=== PATIENT | male | born 1970 | race Caucasian/White ===

== ENCOUNTER 2017-09-08 15:21 | Inpatient (IN) | payer MEDICAID ==
[~2017-09-08] VITALS: Ht 180.3 cm; Wt 93.2 kg
--- NOTE | 2017-09-08 15:28 | NUR ---
PT BIBA C/O ANXIETY AND CHEST PAIN X A COUPLE OF HOURS. PER MEDIC PT IS HAVING A LOT OF ANXIETY. PLACED PT ON CM, VSS. PT A/O X 4, PT'S RESP E/U, PT ABLE TO SPEAK FULL SENTENCES. AWAITING DR REDMAN.
--- NOTE | 2017-09-08 16:04 | NUR ---
ED PHYSICIAN AT BEDSIDE FOR PATIENT EVALUATION. MEDICAL SCREENING EXAMINATION COMPLETED BY ED PHYSICIAN.
--- NOTE | 2017-09-08 16:34 | NUR ---
MEDICATED PT ORDERED, SEE MAR. WILL MONITOR FOR ADVERSE REACTIONS
[2017-09-08 16:41] LABS: BASOPHIL % 0.7 % (0-2); PLATELET COUNT 272 x10^3mcL (130-400)
[2017-09-08 16:48] LABS: CALCIUM 9.1 mg/dL (8.5-10.1); CHLORIDE SERUM 102 mmol/L (98-107); CREATININE SERUM 0.9 mg/dL (0.7-1.3); GFR1 > 60 mL/min; GLUCOSE SERUM 100 mg/dL (74-106); POTASSIUM SERUM 3.7 mmol/L (3.5-5.1); SODIUM SERUM 138 mmol/L (136-145)
[2017-09-08 16:53] LABS: ALBUMIN 3.8 g/dL (3.4-5.0); ALKALINE PHOSPHATASE 73 U/L (46-116); ALT/SGPT 30 U/L (16-63); AST/SGOT 21 U/L (15-37); BILIRUBIN TOTAL 0.8 mg/dL (0.20-1.00); TOTAL PROTEIN, SERUM 8.1 g/dL (6.4-8.2)
--- NOTE | 2017-09-08 18:19 | NUR ---
PT RESTING COMFORTABLY ON GURMELVIN, VSS. WILL CONTINUE TO MONITOR PT.
--- NOTE | 2017-09-08 19:06 | NUR ---
CHANGE OF SHIFT REPORT GIVEN BY MARCO ANTONIO MONTESINOS TO CONTINUE CARE.
--- NOTE | 2017-09-08 19:21 | NUR ---
PT NOTED TO BE ON GURNEY, SUPINE POSITION WITH SYMMETRIC CHEST EXPANSION. PT REPORTS HE WAS WALKING DOWN THE STREET WHEN ANXIETY BEGAN. PT REPORTS SUICIDAL THOUGHTS. PT STATES HEARING VOICES AND HAVING A PLAN. PT STATES ATTEMPTING TO JUMP OF A BRIDGE OR WALKING IN FRONT OF A MOVING CAR IN ATTEMPTS TO HURT HIMSELF. PT ASKING IF HE WILL REMAIN IN ER FOR HOLD, "USUALLY WHEN I SAY I HAVE INTENTIONS TO HURT MYSELF THEY HAVE SOMEONE WATCHING ME...WILL THE DOCTOR GIVE ME MORE MEDICINE?". DR SHOEMAKER MADE AWARE OF PT INTENTIONS TO HURT HIMSELF. PT IN WITH CURTAIN OPEN FOR CLOSER OBSERVATION.
--- NOTE | 2017-09-08 19:30 | NUR ---
DR SHOEMAKER AT BEDSIDE DISCUSSING PLAN OF CARE WITH PT.
--- NOTE | 2017-09-08 19:50 | NUR ---
[facility] AT BEDSIDE.
--- NOTE | 2017-09-08 20:21 | NUR ---
PT NOTED TO BE ON GURENY WATCHING TV. CHEST RISE NOTED UPON INHALATION. NO SX OF ANXIETY NOTED AT THIS TIME. PT IN WITH CURTAIN OPEN FOR CLOSER OBSERVATION.
[2017-09-08 21:03] LABS: AMPHETAMINE QUAL UR NONE DETECTED (NEG <=1000)
--- NOTE | 2017-09-08 21:19 | NUR ---
PT RESTING IN BED WITH NO SIGNS OF DISTRESS AT THIS TIME.
--- NOTE | 2017-09-08 22:15 | NUR ---
PT RESTING IN BED WITH EYES CLOSED WITH NO SIGNS OF DISTRESS NOTED AT THIS TIME. PT CLOSE TO NURSING STATION FOR SAFETY.
--- NOTE | 2017-09-08 23:25 | NUR ---
PT NOTED RESTING LYING IN BED CLOSE TO NURSING STATION. PT'S EYES ARE CLOSED AT THIS TIME WITH NO SIGNS OF DISTRESS NOTED.
--- NOTE | 2017-09-09 00:34 | NUR ---
PT REPOSITIONED FOR COMFORT AND GIVEN WARM BLANKET. NO COMPLAINTS OR SIGNS OF DISTRESS AT THIS TIME.
--- NOTE | 2017-09-09 01:53 | NUR ---
PT MEDICATED PER ORDER. SEE EMAR.
--- NOTE | 2017-09-09 03:22 | NUR ---
PT IS SLEEPING, RESP EVEN AND UNLABORED, REMAINS ON TOWER LOADER OPERATOR. PT IN VIEW FROM NURSES STATION, WILL CONTINUE TO MONITOR.
--- NOTE | 2017-09-09 05:09 | NUR ---
PT REMAINS ASLEEP, RESP EVEN AND UNLABORED, POSITIONED TO COMFORT, ON CARDAIC MONITOR AND IN VIEW FROM NURSES' STATION.
--- NOTE | 2017-09-09 05:54 | NUR ---
PT MEDICATED WITH ATIVAN PER ORDER. SEE EMAR.
--- NOTE | 2017-09-09 06:47 | NUR ---
SPOKE WITH PT REGARDING HOME MEDS AND COMPLIANCE TO HOME MEDICATIONS. PT STATED "I DON'T KNOW", WHEN ASKED IF HE TAKES METFORMIN EACH DAY AND WHAT OTHER MEDICATIONS HE TAKES IN THE MORNINGS ALONG WITH METFORMIN. ASKED PT IF HE TAKES HIS MEDICATIONS ON A DAILY BASIS AND PT REPLIED "NO, I DON'T". WHEN ASKED WHY HE IS NON-COMPLIANT WITH MEDICATION REGIMEN, PT REPLIED "I'M HOMELESS". I GAVE UNDERSTANDING.
--- NOTE | 2017-09-09 07:16 | NUR ---
REPORT GIVEN TO MARCO ANTONIO MARINO TO ASSUME CARE OF PT.
--- NOTE | 2017-09-09 07:28 | NUR ---
RECEIVED REPORT FROM MARCO ANTONIO QUINN TO ASSUME CARE OF PT, PT RESTING IN BED IN A POSITION OF COMFORT, REPORTS FEELING BETTER AFTER RECEIVING ATIVAN PO MEDICATION, PT DENIES ANY PAIN, STS HE STILL FEELS LIKE HURTING SELF AND REPORTS HE HAS BEEN FEELING THAT WAY "FOR A FEW DAYS" DENIES PLAN AT THIS TIME AND VERBALIZES HE WILL NOT TRY TO HARM SELF WHILE HERE, PT IN FULL VIEW OF NURSING STATION, BREAKFAST TRAY PROVIDED AND PT EATING AT THIS TIME, PT RESP EVEN AND UNLBAORED, WILL CONTINUE TO MONITOR
--- NOTE | 2017-09-09 09:15 | NUR ---
PT AMBULATORY WITH STEADY GAIT TO RESTROOM AND BACK TO TX AREA WITH NO INCIDENCE
--- NOTE | 2017-09-09 09:17 | NUR ---
PT REPORTS FEELING VERY ANXIOUS AGAIN, DR. GRECO MADE AWARE, PT MEDICATED PER MD ORDER, PLEASE SEE EMAR, PT TOLERATED WELL, PT IN FULL VIEW OF NURSING STATION, PT RESP EVEN AND UNLABORED, IN NO ACUTE DISTRESS, WILL CONTINUE TO MONITOR
--- NOTE | 2017-09-09 10:10 | NUR ---
PT RESTING IN BED IN A POSITION OF COMFORT, RESP EVEN AND UNLABORED, CUP OF SPRITE PROVIDED PER PT REQUEST, PT IN FULL VIEW OF NURSING STATION, PT IN NO ACUTE DISTRESS, WILL CONTINUE TO MONITOR
[2017-09-09] MEDS ORDERED: HYDROXYZINE50 M1 PO (10:20)
[2017-09-09] MEDS ORDERED: TRAZODONE50 M1 PO (10:20)
[2017-09-09] MEDS ORDERED: DOK COLACE100 MG PO (10:21)
[2017-09-09] MEDS ORDERED: LEXAPRO10 MG PO (10:21)
[2017-09-09] MEDS ORDERED: METFORMIN HCL1000 MG PO (10:22)
[2017-09-09] MEDS ORDERED: PROPRANOLOL HCL20 MG PO (10:22)
--- NOTE | 2017-09-09 10:23 | NUR ---
MED REC COMPLETED
--- NOTE | 2017-09-09 10:50 | NUR ---
RESIDENT AT BEDSIDE FOR EVAL
--- NOTE | 2017-09-09 11:37 | NUR ---
PT ASKING FOR SOMETHING "FOR THE VOICES." PONCE ORDERED BUT NOT SLATED TO START UNTIL TOMORROW. CALLED PHARMACIST BUT HE STATES WE COULD NEED A ONE TIME ORDER TO GIVE TODAY. CALLED RESIDENT SUGAR CANE PLANTER MACHINE OPERATOR, SPOKE W/ DR. MARTINEZ. HE WILL DISCUSS W/ ATTENDING & PUT IN A MED ORDER, POSSIBLY ANKIT.
--- NOTE | 2017-09-09 12:25 | NUR ---
PT MEDICATED PER MD ORDER, PLEASE SEE EMAR, PT TOLERATED WELL, PT EATING LUNCH AT THIS TIME, IN NO ACUTE DISTRESS AND IN FULL VIEW OF NURSING STATION, WILL CONTINUE TO MONITOR
--- NOTE | 2017-09-09 13:04 | NUR ---
PT ASKED IF HE COULD PACE. UP PACING BACK & FORTH AGAIN.
--- NOTE | 2017-09-09 13:10 | NUR ---
REPORT GIVEN TO MARCO ANTONIO JACINTO TO ASSUME CARE OF PT POST TRANSPORT TO ICU
--- NOTE | 2017-09-09 13:15 | NUR ---
RECEIVED REPORT FROM ED RN, WILL AWAIT PT'S ARRIVAL.
[2017-09-09 13:45] VITALS: BP 142/106
--- NOTE | 2017-09-09 13:45 | NUR ---
PT RECEIVED FROM ED, A/OX4, BREATHING EVEN AND UNLABORED, DENIES SOB, LUNGS CTA ON RA, 94% O2 SATS, PULSES PRESENT, NO EDEMA NOTED, CAP REFILL <3, HR 105 ST, DENIES CHEST PAIN, S1 AND S2 PRESENT, SKIN WARM/DRY/INTACT, PT DENIES N/V, ABD SOFT/ROUND AND NONTENDER, BOWEL SOUNDS ACTIVE X4, LBM REPORTED 09/07/17, REPORTS LBM LOOSE, IV TO LAC INFUSING NS AT 100ML/HR, ABLE TO VOID USING URINAL, PALE YELLOW URINE NOTED, DENIES ALL PAIN AT THIS TIME, PT STATES HE IS HOMELESS AND "I HAVE NOBODY", C/O ANXIETY, PT STATES HE HAS SUICIDAL IDEATION, PT WITHIN VIEW OF NURSES STATION, CALL LIGHT WITHIN REACH, WILL CONTINUE TO MONITOR.
[2017-09-09 14:28] LABS: BASOPHIL % 0.6 % (0-2); PLATELET COUNT 236 x10^3mcL (130-400)
[2017-09-09 14:35] LABS: AMYLASE 63 U/L (25-115); CALCIUM 9.5 mg/dL (8.5-10.1); CARBON DIOXIDE 28.7 mmol/L (21-32); CHLORIDE SERUM 103 mmol/L (98-107); CHOLESTEROL 189 mg/dL (<200); CHOLESTEROL/HDL RATIO 3.9; GFR1 > 60 mL/min; GLUCOSE SERUM 109 mg/dL (74-106); HDL CHOLESTEROL 48 mg/dL (40-60); LIPASE 122 IU/L (73-393); MAGNESIUM 2.2 mg/dL (1.8-2.4); PHOSPHOROUS 3.7 mg/dL (2.5-4.9); SODIUM SERUM 140 mmol/L (136-145); TRIGLYCERIDES 144 mg/dL (<150)
--- NOTE | 2017-09-09 14:38 | NUR ---
DR ROGERS AT BEDSIDE SPEAKING WITH PT.
[2017-09-09 15:12] LABS: FREE T4 1.02 ng/dL (0.76-1.46); FREE THYROXINE INDEX 3.2 ug/dL (1.4-4.5); T4(THYROXINE) 8.7 ug/dL (4.7-13.3)
[2017-09-09 15:39] LABS: T3 TOTAL 0.93 ng/mL
[2017-09-09 16:05] VITALS: BP 112/73
--- NOTE | 2017-09-09 16:05 | NUR ---
PT A/OX4,DENIES H/A, LUNGS CTA ON RA, BREATHING EVEN AND UNLABORED, DENIES SOB, PULSES PRESENT, NO EDEMA NOTED, CAP REFILL <3 SEC, HR 80 NSR, DENIES CHEST PAIN, SKIN WAR/DRY/INTACT, BOWEL SOUNDS ACTIVE X4, DENIES N/V, ABD NONTENDER, ABD SOFT/ROUND, IV TO LAC INFUSING NS AT 100ML/HR, IV WNL, PT ABLE TO VOID USING URINAL, PALE YELLOW URINE NOTED, DENIES ALL PAIN, PT VOICES SUICIDAL IDEATION, PT WITHIN VIEW OF NURSES STATION, CALL LIGHT WITHIN REACH, WILL CONTINUE TO MONITOR.
--- NOTE | 2017-09-09 17:31 | NUR ---
DR GRADY AT BEDSIDE. UPDATES PROVIDED. INFORMED OF DR ROGERS RECOMMENDATIONS OF TXFER TO PSYCHIATRIC FACILITY IF MEDICALLY CLEARED. DR GRADY TO PUT IN REQUEST FOR [facility] TO FIND SUITABLE FACILITY.
[2017-09-09 19:00] VITALS: BP 139/90
--- NOTE | 2017-09-09 19:10 | NUR ---
PT ENDORSED TO JAGUAR BERNARD AND MARIEL BERNARD, ALL QUESTIONS ANSWERED.
--- NOTE | 2017-09-09 19:49 | NUR ---
PT CURRENTLY RESTING IN BED, NO ACUTE DISTRESS. A/O X4. TELE SHOWING SINUS RHYTHM, DENIES CHEST PAIN. PULSES PALPABLE IN ALL EXTREMITIES, NO EDEMA NOTED. LUNG SOUNDS CTA BILATERALLY. BOWEL SOUNDS ACTIVE, LAST BM 09/07/17. VOIDING WELL. AMBULATORY. SKIN INTACT. IV PATENT AND INTACT. POSITIVE SUICIDAL IDEATION, PT STATES HE DOES NOT INTEND TO HARM HIMSELF DESPITE THOUGHTS. PT STATES AUDITORY HALLUCINATIONS HAVE STOPPED. BED IN LOWEST POSITION, SIDE RAILS UP X2, CALL LIGHT WITHIN REACH. WILL CONTINUE TO MONITOR.
--- NOTE | 2017-09-09 23:17 | NUR ---
PT CURRENTLY RESTING IN BED, NO ACUTE DISTRESS. POSITIVE SUICIDAL IDEATION, PT STATES HE DOES NOT INTEND TO HARM SELF AT THIS TIME. WILL CONTINUE TO MONITOR.
[2017-09-09 23:37] VITALS: BP 111/70
--- NOTE | 2017-09-10 03:17 | NUR ---
PT CURRENTLY RESTING IN BED, NO ACUTE DISTRESS. NO SIGNIFICANT CHANGES FROM PREVIOUS ASSESSMENT. POSITIVE SUICIDAL IDEATION, DENIES INTENT TO HARM SELF. WILL CONTINUE TO MONITOR.
[2017-09-10 03:47] VITALS: BP 116/81
[2017-09-10 04:51] LABS: BASOPHIL % 0.3 % (0-2); PLATELET COUNT 211 x10^3mcL (130-400); RED CELL DISTRIBUTION WIDTH 13.9 % (11.5-14.5)
[2017-09-10 05:12] LABS: CALCIUM 8.3 mg/dL (8.5-10.1); CARBON DIOXIDE 26.2 mmol/L (21-32); CHLORIDE SERUM 105 mmol/L (98-107); GFR1 > 60 mL/min; GLUCOSE SERUM 98 mg/dL (74-106); POTASSIUM SERUM 3.7 mmol/L (3.5-5.1); SODIUM SERUM 139 mmol/L (136-145)
--- NOTE | 2017-09-10 07:07 | NUR ---
CARE ENDORSED TO DEJON BERNARD AND FELIX BERNARD.
[2017-09-10 08:00] VITALS: BP 139/92
[2017-09-10 08:10] VITALS: Ht 180.3 cm; Wt 93.2 kg
--- NOTE | 2017-09-10 08:35 | NUR ---
DR. THOMASON, RESIDENTS, SWEEPER BRUSH MAKER MACHINE AND PRIMARY RN AT BEDSIDE FOR MORNING ROUNDS. PLAN OF CARE DISCUSSED. PT A/O X 4 AND IN AGREEMENT TO PLAN. WILL CONT TO MONITOR.
--- NOTE | 2017-09-10 10:53 | NUR ---
ECHOCARDIOGRAM COMPLETED.
[2017-09-10 12:00] VITALS: BP 99/63
--- NOTE | 2017-09-10 14:21 | NUR ---
COMPLETE LINEN AND GOWN CHANGED. PATIENT CURRENTLY WALKING AROUND THE UNIT, COOPERATIVE WITH STEADY GAIT. WILL CONTINUE TO MONITOR.
[2017-09-10 16:55] VITALS: BP 126/91
--- NOTE | 2017-09-10 18:44 | NUR ---
PT REMAINED STABLE THROUGHOUT DAY. AAOX4. DENIES HALLUCINATIONS AND SI. ON RA, DENIES SOB THROUGHOUT DAY AND ABLE TO HOLD CONVERSATIONS. VITAL SIGNS REMAINED WNL. PT ABLE TO AMBULATE AROUND UNIT. USES COMMODE TO DEFECATE AND VOIDS IN URINAL. IV FLUIDS DISCONTINUED PT IS EATING AND HYDRATING WELL. WILL CONTINUE TO MONITOR AND ENDORSE CARE TO ONCOMING RN.
--- NOTE | 2017-09-10 19:18 | NUR ---
RECEIVED PT FROM PREVIOUS SHIFT. ALL QUESTIONS AND CONCERNS ADDRESSED AT THIS TIME. PT IN NO ACUTE DISTRESS. DENIES CHEST PAIN/PRESSURE. DENIES SOB ON RA. IV TO LAC PATENT, HEPLOCKED. PT AMBULATING IN STATION PER REQUEST. STEADY GAIT. DENIES PAIN. WILL CONTINUE TO MONITOR.
[2017-09-10 19:51] VITALS: BP 129/82
--- NOTE | 2017-09-10 20:17 | NUR ---
PT C/O FEELING ANXIOUS. ATIVAN PO PROVIDED PER EMAR WITH MEDS. TOLERATED WELL. WILL CONTINUE TO MONITOR.
--- NOTE | 2017-09-10 23:19 | NUR ---
PT RESTING AT THIS TIME IN NO ACUTE DISTRESS. RR EVEN/UNLABORED. EASILY AWAKENED. REFUSED VS AT THIS TIME. DENIES PAIN. DENIES SOB ON RA. IV PATENT. CALL LIGHT WITHIN REACH, BED IN LOW POSITION. WILL CONTINUE TO MONTIOR.
[2017-09-11 03:39] VITALS: BP 119/75
--- NOTE | 2017-09-11 06:37 | NUR ---
NO ACUTE CHAMGES THROUGHOUT SHIFT. PT A/OX4. DENIES PAIN. DENIES SOB ON RA. IV PATENT. WILL ENDORSE CARE TO ONCOMING SHIFT
[2017-09-11 08:00] VITALS: BP 123/86
--- NOTE | 2017-09-11 08:00 | NUR ---
RECEIVED PT IN BED. ASSESSED AND DOCUMENTED. DENIES PAIN THIS TIME. STATED HE HAS MILD ANXIETY AND MEDICATED PT WITH ATIVAN PO ORDERED. SAFTEY PRECAUTIONS ARE IN PLACE.
--- NOTE | 2017-09-11 09:00 | NUR ---
PT IS MORE CALM NOW AFTER ATIVAN PO. AMBULATING IN THE HALLWAY WITH STAEDY GAIT.
--- NOTE | 2017-09-11 09:12 | NUR ---
PATIENT ROUNDS WITH DR. KIM AND RESIDENTS. PRIMARY NURSE AND CHARGE NURSE AT BEDSIDE. UPDATES PROVIDED AND POC DISCUSSED. WILL CONTINUE TO MONITOR.
[2017-09-11 12:00] VITALS: BP 119/90
--- NOTE | 2017-09-11 14:30 | NUR ---
PT SAID HE CANNOT STOP MOVING HIS LEG AND SHOWING HE MOVING HIS LEG. NURSE ASKED PT TO STOP MOVING LEG THEN HE DID FOR FEW MINUTE AGAIN HE STARTED TO MOVE FOR FEW MIN AND THEN STOPPED. PT ASKING FOR RESTLESS LEG SYNDROM MEDICINE, INFORMED ABOUT EVERYTHING. ALSO KNOWS ABOUT PT ASKING FOR MUSCLE RELAXANT. VITAL SIGNS ARE STABLE.
[2017-09-11 16:00] VITALS: BP 113/77
--- NOTE | 2017-09-11 16:00 | NUR ---
PT RESTING IN BED. NO DISTRESS NOTED. ASSESSED AND DOCUMENTED.
--- NOTE | 2017-09-11 19:15 | NUR ---
PT RESTING IN BED COMFORTABLY. DENIES PAIN THIS TIME. NO ANXIETY THIS TIME. PT IS AMBULATING IN THE HALLWAY. GAVE REPORT TO NEXT SHIFT NURSE.
[2017-09-11 20:00] VITALS: BP 125/80
--- NOTE | 2017-09-11 20:00 | NUR ---
RECEIVED PT IN BED, AWAKE, ALERT AND ORIENTED, ABLE TO VERBALIZE NEEDS. BUT APPEARS ANXIOUS. DENIES HEADACHE/DIZZINESS. RESP. EVEN AND UNLABORED. ON ROOM AIR, LUNGS SOUNDS CLEAR BILAT. AFEBRILE AND VITAL SIGNS STABLE. SR ON THE MONITOR, DENIES CP OR PRESSURE. HL TO LAC, INTACT AND PATENT. AMBULATORY. VOIDING FREELY.REMAINS ON 5150 HOLD FOR SUICIDAL IDEATION, BUT PT DENIES AT THIS TIME. CALL LIGHT WITHIN REACH. WILL CONTINUE TO MONITOR.
--- NOTE | 2017-09-11 22:07 | NUR ---
PACING, APPEARS RESTLESS, REQUESTING ANXIETY MED, MEDICATED WITH ATIVAN PO ORDERED. WILL CONTINUE TO MONITOR.
--- NOTE | 2017-09-11 23:08 | NUR ---
EYES CLOSED, APPEARS ASLEEP, EASILY AROUSABLE. NO DISTRESS NOTED. WILL CONTINUE TO MONITOR.
--- NOTE | 2017-09-12 00:20 | NUR ---
RESP. EVEN AND UNLABORED. NO DISTRESS NOTED. EYES CLOSED, APPEARS ASLEEP, EASILY AWAKENED, NO DISTRESS NOTED. WILL CONTINUE TO MONITOR.
[2017-09-12 02:00] VITALS: BP 95/63
--- NOTE | 2017-09-12 02:10 | NUR ---
AWAKE, REQUESTING ANXIETY MED. MEDICATED WITH ATIVAN PO ORDERED. WILL CONTINUE TO MONITOR.
[2017-09-12 05:49] VITALS: BP 93/64
--- NOTE | 2017-09-12 06:40 | NUR ---
AFEBRILE AND VITAL SIGNS STABLE. RESP. EVEN AND UNLABORED. NO DISTRESS NOTED. NO COMPLAINTS NOTED AT THIS TIME. KEPT COMFORTABLE. DENIES ANY SUICIDAL IDEATION AT THIS TIME.DENIES PAIN OR ANY DISCOMFORT. WILL ENDORSE TO INCOMING NURSE.
--- NOTE | 2017-09-12 07:07 | NUR ---
REPORT RECEIVED FROM SEBAS BERNARD. ALL QUESTIONS AND CONCERNS ADDRESSED. PT IS LYING IN BED IN POSITION OF COMFORT. ALERT AND ORIENTED. RESPIRATIONS ARE EVEN AND UNLABORED. AWAITING BREAKFAST. ASSESSMENT TO FOLLOW. BED LOCKED AND IN LOWEST POSITION. SIDE RAILS X2 UP. CALL LIGHT WITHIN REACH. WILL CONTINUE TO MONITOR.
[2017-09-12 08:35] VITALS: BP 120/86
[2017-09-12 12:28] VITALS: BP 109/78
--- NOTE | 2017-09-12 13:30 | NUR ---
PT AMBULATING AROUND UNIT WITH BALANCED/STEADY GAIT. WILL CONTINUE TO MONITOR.
--- NOTE | 2017-09-12 14:40 | NUR ---
PT AMBULATING AROUND UNIT WITH BALANCED STEADY GAIT. WILL CONTINUE TO MONITOR.
--- NOTE | 2017-09-12 14:55 | NUR ---
DR MILLS AT BEDSIDE WITH PT. WILL CONTINUE TO MONITOR.
[2017-09-12 15:44] VITALS: BP 109/78
--- NOTE | 2017-09-12 16:00 | NUR ---
IV ACCESS AT TO LAC REMOVED, ANGIOCATH INTACT. BLEEDING CONTROLLED AND DRESSING APPLIED. PT INFORMATION REVIEWED AND PROVIDED TO PATIENT. LIST OF LOCAL MENTAL HEALTH SERVICE FACILITIES PROVIDED TO PATIENT. PT VERBALIZED UNDERSTANDING. PT WALKED TO ER LOBBY BY AGNES BERNARD WITHOUT INCIDENCE. PT AWAITING TAXI TO ARRIVE, TAXI VOUCHER PROVIDED TO PATIENT.
== END 2017-09-12 16:05 | disposition home or self-care (01) | DRG 750 ==
LOC: ED 15:21 → IC 09-09 10:23 → DU 09-09 10:23 → EDBEDREQ 09-09 12:12 → IC 09-09 12:30
PROVIDERS: Emergency Medicine; ADMIT Family Medicine
DX: F25.0 Schizoaffective disorder, bipolar type (principal); D68.69 Other thrombophilia; R45.851 Suicidal ideations; M94.0 Chondrocostal junction syndrome [Tietze]; E11.9 Type 2 diabetes mellitus without complications; E78.5 Hyperlipidemia, unspecified; G47.00 Insomnia, unspecified; R29.898 Other symptoms and signs involving the musculoskeletal system; Z59.0 Homelessness; Z68.28 Body mass index [BMI] 28.0-28.9, adult; Z79.84 Long term (current) use of oral hypoglycemic drugs
CPT/HCPCS: 82962; 83880; 84439; G0480; J3486; J3490; J7030; J7050; Q0092

== ENCOUNTER 2017-09-13 00:37 | Inpatient (IN) | payer MEDICAID ==
[~2017-09-13] VITALS: Ht 180.3 cm; Wt 97.0 kg
[~2017-09-13 00:37] MED LIST: DOK COLACE100 MG PO; HYDROXYZINE50 M1 PO; LEXAPRO10 MG PO; METFORMIN HCL1000 MG PO; PROPRANOLOL HCL20 MG PO; TRAZODONE50 M1 PO
[2017-09-13 03:54] LABS: BASOPHIL % 1.9 % (0-2); PLATELET COUNT 226 x10^3mcL (130-400); RED CELL DISTRIBUTION WIDTH 13.3 % (11.5-14.5)
[2017-09-13 04:59] LABS: CARBON DIOXIDE 25.6 mmol/L (21-32); CHLORIDE SERUM 104 mmol/L (98-107); GFR1 > 60 mL/min; GLUCOSE SERUM 93 mg/dL (74-106); SODIUM SERUM 139 mmol/L (136-145)
[2017-09-13 05:04] LABS: ALBUMIN 3.7 g/dL (3.4-5.0); ALKALINE PHOSPHATASE 73 U/L (46-116); ALT/SGPT 31 U/L (16-63); AST/SGOT 20 U/L (15-37); BILIRUBIN TOTAL 0.55 mg/dL (0.20-1.00); TOTAL PROTEIN, SERUM 7.8 g/dL (6.4-8.2)
[2017-09-13 05:05] LABS: AMPHETAMINE QUAL UR NONE DETECTED (NEG <=1000)
[2017-09-13 20:57] LABS: UA SPECIFIC GRAVITY 1.025 (1.005-1.035); microscopic required? YES; urine erythrocyte 1+ (NEGATIVE)
[2017-09-13 23:21] VITALS: BP 95/73
[2017-09-14 07:21] LABS: MAGNESIUM 1.8 mg/dL (1.8-2.4)
[2017-09-14 09:37] VITALS: BP 105/72
[2017-09-14 13:16] VITALS: BP 105/73
[2017-09-14 18:08] VITALS: BP 102/75
[2017-09-14 21:14] VITALS: BP 98/67
[2017-09-15 05:16] VITALS: BP 108/75
[2017-09-15 06:16] LABS: CARBON DIOXIDE 24.6 mmol/L (21-32); CHLORIDE SERUM 107 mmol/L (98-107); GFR1 > 60 mL/min; GLUCOSE SERUM 85 mg/dL (74-106); POTASSIUM SERUM 3.7 mmol/L (3.5-5.1); SODIUM SERUM 140 mmol/L (136-145)
[2017-09-15 06:33] LABS: BASOPHIL % 0.4 % (0-2); PLATELET COUNT 204 x10^3mcL (130-400); RED CELL DISTRIBUTION WIDTH 14.2 % (11.5-14.5)
[2017-09-15] MEDS ORDERED: SERO100 PO (09:20)
[2017-09-15 12:37] VITALS: BP 104/71
[2017-09-15 17:15] VITALS: BP 107/75
[2017-09-15 21:38] VITALS: BP 99/66
[2017-09-15 21:40] VITALS: BP 99/66
[2017-09-16 06:28] VITALS: BP 103/72
[2017-09-16 13:03] VITALS: BP 114/85
[2017-09-16 18:07] VITALS: BP 116/93
[2017-09-16 20:29] VITALS: BP 119/85
[2017-09-17 04:42] VITALS: BP 143/85
[2017-09-17 05:45] VITALS: BP 115/77
[2017-09-17 17:40] VITALS: BP 105/75
[2017-09-17 20:58] VITALS: BP 124/90
[2017-09-18 06:03] VITALS: BP 124/90
[2017-09-18 09:49] VITALS: BP 114/79
[2017-09-18 13:57] VITALS: BP 112/71
[2017-09-18 18:16] VITALS: BP 113/81
[2017-09-18 20:55] VITALS: BP 109/73
[2017-09-19 05:46] VITALS: BP 115/80
[2017-09-19 09:32] VITALS: BP 117/89
[2017-09-19 13:51] VITALS: BP 100/68
[2017-09-19 17:14] VITALS: BP 110/82
[2017-09-19 22:07] VITALS: BP 107/74
[2017-09-20 08:37] VITALS: BP 118/79
[2017-09-20 13:27] VITALS: BP 110/79
[2017-09-20 18:13] VITALS: BP 104/75
[2017-09-20 21:30] VITALS: BP 128/87
[2017-09-21 09:55] VITALS: BP 109/88
[2017-09-21 17:49] VITALS: BP 109/81
[2017-09-21 21:10] VITALS: BP 110/78
[2017-09-22 05:39] VITALS: BP 98/65
[2017-09-22 06:20] LABS: BASOPHIL % 0.2 % (0-2); PLATELET COUNT 230 x10^3mcL (130-400); RED CELL DISTRIBUTION WIDTH 13.7 % (11.5-14.5)
[2017-09-22 06:45] LABS: ALBUMIN 3.1 g/dL (3.4-5.0); CALCIUM 8.3 mg/dL (8.5-10.1); CARBON DIOXIDE 24.1 mmol/L (21-32); CHLORIDE SERUM 107 mmol/L (98-107); CREATININE SERUM 0.8 mg/dL (0.7-1.3); GFR1 > 60 mL/min; GLUCOSE SERUM 82 mg/dL (74-106); POTASSIUM SERUM 3.4 mmol/L (3.5-5.1); SODIUM SERUM 142 mmol/L (136-145)
[2017-09-22 09:48] VITALS: BP 118/81
[2017-09-22] MEDS ORDERED: PROPRANOLOL HCL20 MG PO (10:20)
[2017-09-22] MEDS ORDERED: LEXAPRO10 MG PO (10:21)
[2017-09-22] MEDS ORDERED: TRAZODONE50 M1 PO (10:22)
[2017-09-22] MEDS ORDERED: SERO100 PO (10:22)
[2017-09-22] MEDS ORDERED: HYDROXYZINE50 M1 PO (10:23)
[2017-09-22] MEDS ORDERED: METFORMIN HCL1000 MG PO (10:25)
[2017-09-22] MEDS ORDERED: BUS5 PO (10:26)
[2017-09-22] MEDS ORDERED: BG FS (10:26)
[2017-09-22] MEDS ORDERED: ACCU-CHEK1 EACH MC (10:30)
[2017-09-22 13:19] VITALS: BP 118/81
== END 2017-09-22 14:05 | disposition home or self-care (01) | DRG 139 ==
LOC: ED 00:37 → DU 18:24 → MU 09-16 17:13
PROVIDERS: Emergency Medicine; Family Medicine
DX: J18.9 Pneumonia, unspecified organism (principal); D68.69 Other thrombophilia; R45.851 Suicidal ideations; E44.0 Moderate protein-calorie malnutrition; F33.1 Major depressive disorder, recurrent, moderate; I36.1 Nonrheumatic tricuspid (valve) insufficiency; E86.0 Dehydration; F25.0 Schizoaffective disorder, bipolar type; E11.9 Type 2 diabetes mellitus without complications; R31.9 Hematuria, unspecified; E87.6 Hypokalemia; I37.1 Nonrheumatic pulmonary valve insufficiency; I34.0 Nonrheumatic mitral (valve) insufficiency; E78.5 Hyperlipidemia, unspecified; E66.3 Overweight; G47.00 Insomnia, unspecified; Z59.0 Homelessness; Z68.29 Body mass index [BMI] 29.0-29.9, adult; Z79.84 Long term (current) use of oral hypoglycemic drugs; Z91.19 Patient's noncompliance with other medical treatment and regimen
CPT/HCPCS: 82962; 83880; 94150; G0480; J1630; J7030; J7620; Q0092; Q0163